=== PATIENT | female | born 1960 | race Caucasian/White ===

== ENCOUNTER 2020-09-27 12:13 | Outpatient (REF) | payer BC, SELFPAY ==
--- NOTE | ~2020-09-27 | XR_ITS ---
EXAMINATION: CR SINUSES CLINICAL INFORMATION: Other specified disorders of nose and nasal sinuses (J34.89) COMPARISON: None TECHNIQUE: 4 views of the sinuses were obtained. FINDINGS: Paranasal sinuses appear clear without air-fluid levels. No fractures are identified. No radiodense foreign bodies. XR/XR sinus gaona view IMPRESSION: Unremarkable examination.
== END 2020-09-27 12:14 | disposition home or self-care (01) ==
LOC: HO.HMGCX 12:13
PROVIDERS: PCP Hospitalist; Visit Provider Physician Assistant
DX: J34.89 Other specified disorders of nose and nasal sinuses (principal); R22.0 Localized swelling, mass and lump, head
CPT/HCPCS: 70210